=== PATIENT | male | born 1960 | race Caucasian/White ===

== ENCOUNTER → 2022-01-30 | Outpatient (CLI) | payer OTHER ==
--- NOTE | 2022-01-31 08:46 | KCIC ---
XR LUMBAR SPINE 4+V 01/31/2022 Reason: NEUROPATHY DOWN RT THIGH, LBP 2-3 WEEKS AFTER LIFTING HEAVY BOXES Comparison: None Technique: 5 views of the lumbosacral spine Findings: 5 nonrib-bearing vertebral bodies in the lumbar spine. Vertebral body heights are normal. AP alignmen t is normal. Mild degenerative disc and vacuum disc phenomenon at the L5-S1 level. Minimal marginal o steophytes. Mild diffuse facet joint hypertrophy. Incidental note of a posterior nonhealed rib fractu re of the left 10th rib. Calcified atherosclerosis of the aorta. Impression: No acute abnormality in the lumbar spine. Electronically signed by: Manny Alford MD (01/31/2022 8:43 AM) [id number]
== END ==
LOC: KCIC 15:20
PROVIDERS: ATTEND Nurse Practitioner Family
DX: M51.37 Other intervertebral disc degeneration, lumbosacral region (principal); I70.0 Atherosclerosis of aorta; M47.896 Other spondylosis, lumbar region; G62.9 Polyneuropathy, unspecified
CPT/HCPCS: 72110